=== PATIENT | male | born 1975 | race Caucasian/White ===

== ENCOUNTER 2021-09-24 15:50 | Inpatient (IN) | payer MEDICARE, OTHER ==
[~2021-09-24] VITALS: Ht 175.3 cm; Wt 78.0 kg
[2021-09-24 16:01] VITALS: BP 115/65
[2021-09-24] MEDS ORDERED: IPRATROPIUM BROMIDE 0.5 MG/2.5 ML NEB SOLUTION NEB PRN (17:15)
[2021-09-24] MEDS ORDERED: ALBUTEROL SULFATE 2.5 MG/0.5 ML NEB SOLUTION NEB PRN (17:15)
[2021-09-24] MEDS ORDERED: HYPROMELLOSE 0.5% 15 ML OPHTHALMIC SOLUTION OU PRN (17:15)
[2021-09-24] MEDS: ENOXAPARIN SODIUM 60 MG/0.6 ML PF SYRINGE SQ SCH (20:36)
[2021-09-24] MEDS: MELATONIN 3 MG TABLET PO PRN (20:36)
[2021-09-24] MEDS: PROPRANOLOL HCL 20 MG TABLET PO SCH (20:36)
[2021-09-24] MEDS: TERAZOSIN HCL 2 MG CAPSULE PO SCH (20:36)
[2021-09-24] MEDS: QUEtiapine FUMARATE 25 MG TABLET PO SCH (20:36)
[2021-09-24] MEDS: GABAPENTIN 300 MG CAPSULE PO SCH (20:37)
[2021-09-24] MEDS: DOCUSATE SODIUM 100 MG CAPSULE PO SCH (20:37)
[2021-09-24] MEDS: ETHYL ALCOHOL 62% ANTISEPTIC NASAL SANITIZER 0.6 ML AMPUL NASAL SCH (20:37)
[2021-09-24] MEDS: -LIDODERM PATCH NOTE- MISC SCH (20:37)
[2021-09-24] MEDS: SENNA 187 MG TABLET PO SCH (20:37)
[2021-09-24 20:46] VITALS: BP 120/62
[2021-09-24] MEDS ORDERED: TERAZOSIN HCL 2 MG CAPSULE PO SCH (21:00)
[2021-09-24] MEDS ORDERED: PROPRANOLOL HCL 20 MG TABLET PO SCH (21:00)
[2021-09-25 02:30] VITALS: BP 110/67
[2021-09-25] MEDS: FAMOTIDINE 20 MG TABLET PO SCH (06:05)
[2021-09-25 08:00] VITALS: BP 101/61
[2021-09-25] MEDS: ENOXAPARIN SODIUM 60 MG/0.6 ML PF SYRINGE SQ SCH ×2 (08:32→20:14)
[2021-09-25] MEDS: ETHYL ALCOHOL 62% ANTISEPTIC NASAL SANITIZER 0.6 ML AMPUL NASAL SCH ×2 (08:32→20:14)
[2021-09-25] MEDS: DOCUSATE SODIUM 100 MG CAPSULE PO SCH ×2 (08:33→20:14)
[2021-09-25] MEDS: LIDOCAINE 5% TRANSDERMAL PATCH TD SCH (08:33)
[2021-09-25] MEDS: GABAPENTIN 300 MG CAPSULE PO SCH ×3 (08:33→20:14)
[2021-09-25 08:40] VITALS: BP 97/65
[2021-09-25] MEDS: PROPRANOLOL HCL 20 MG TABLET PO SCH ×3 (08:40→20:15)
[2021-09-25] MEDS: ACETAMINOPHEN 325 MG TABLET PO PRN (09:08)
[2021-09-25 09:15] LABS: BASOPHILS % (AUTO) 1.2 % (0.0-2.0); EOSINOPHILS % (AUTO) 5.7 % (1.0-6.0); HEMOGLOBIN 11.7 g/dL (13.5-17.5); LYMPHOCYTES # (AUTO) 1.1 K/uL (1.0-4.8); LYMPHOCYTES % (AUTO) 23.2 % (22.0-44.0); MEAN CORPUSCULAR HEMOGLOBIN 26.3 pg (26.0-34.0); MEAN CORPUSCULAR HGB CONC 32.5 G/dL (31.0-37.0); MEAN CORPUSCULAR VOLUME 81 fL (80-100); MONOCYTES # (AUTO) 0.4 K/uL (0.1-1.0); MONOCYTES % (AUTO) 9.2 % (2.0-9.0); NEUTROPHILS # (AUTO) 2.8 K/uL (1.8-7.7); NEUTROPHILS % (AUTO) 60.7 % (40.0-70.0); PLATELET COUNT (AUTO) 506 K/uL (150-450); RED BLOOD CELL COUNT(AUTO) 4.44 MIL/uL (4.50-5.90); RED CELL DISTRIBUTION WIDTH 19.5 % (11.5-14.5)
[2021-09-25 09:31] LABS: ALANINE AMINOTRANSFERASE 52 U/L (12-78); ALBUMIN 2.9 g/dL (3.4-5.0); ALKALINE PHOSPHATASE 160 U/L (46-116); ANION GAP 7 mmol/L (8-16); ASPARTATE AMINOTRANSFERASE 21 U/L (15-37); BILIRUBIN,TOTAL 0.1 mg/dL (0.1-1.0); CALCIUM, TOTAL 9.4 mg/dL (8.8-10.5); CARBON DIOXIDE 31 mmol/L (22-29); CHLORIDE 104 mmol/L (98-107); CREATININE 0.79 mg/dL (0.60-1.30); GLOMERULAR FILTR. RATE CALC > 60 mL/min (>60); GLUCOSE,RANDOM 97 mg/dL (70-110); POTASSIUM 3.7 mmol/L (3.5-5.1); SODIUM SERUM 142 mmol/L (136-145); TOTAL PROTEIN, SERUM 7.7 g/dL (6.4-8.2); UREA NITROGEN, BLOOD 12 mg/dL (7-18)
[2021-09-25 12:21] VITALS: BP 114/79
[2021-09-25 16:14] VITALS: BP 114/77
[2021-09-25] MEDS: QUEtiapine FUMARATE 25 MG TABLET PO SCH (20:14)
[2021-09-25] MEDS: MELATONIN 3 MG TABLET PO PRN (20:14)
[2021-09-25] MEDS: SENNA 187 MG TABLET PO SCH (20:14)
[2021-09-25] MEDS: TERAZOSIN HCL 2 MG CAPSULE PO SCH (20:14)
[2021-09-25] MEDS: -LIDODERM PATCH NOTE- MISC SCH ×2 (20:15)
[2021-09-25 20:25] VITALS: BP 108/63
[2021-09-26] VITALS (7 sets, daily range): BP systolic 95–127; BP diastolic 51–76
[2021-09-26] MEDS: FAMOTIDINE 20 MG TABLET PO SCH (06:32)
[2021-09-26] MEDS: ETHYL ALCOHOL 62% ANTISEPTIC NASAL SANITIZER 0.6 ML AMPUL NASAL SCH ×2 (08:27→21:06)
[2021-09-26] MEDS: DOCUSATE SODIUM 100 MG CAPSULE PO SCH ×2 (08:27→21:06)
[2021-09-26] MEDS: ENOXAPARIN SODIUM 60 MG/0.6 ML PF SYRINGE SQ SCH ×2 (08:28→21:12)
[2021-09-26] MEDS: GABAPENTIN 300 MG CAPSULE PO SCH ×3 (08:28→21:07)
[2021-09-26] MEDS: LIDOCAINE 5% TRANSDERMAL PATCH TD SCH ×2 (08:29→08:30)
[2021-09-26] MEDS: ACETAMINOPHEN 325 MG TABLET PO PRN (08:30)
[2021-09-26] MEDS: PROPRANOLOL HCL 20 MG TABLET PO SCH (08:37)
[2021-09-26] MEDS: PROPRANOLOL HCL 10 MG TABLET PO SCH ×2 (12:31→21:06)
[2021-09-26] MEDS: -LIDODERM PATCH NOTE- MISC SCH ×2 (21:06)
[2021-09-26] MEDS: QUEtiapine FUMARATE 25 MG TABLET PO SCH (21:06)
[2021-09-26] MEDS: TERAZOSIN HCL 2 MG CAPSULE PO SCH (21:07)
[2021-09-26] MEDS: SENNA 187 MG TABLET PO SCH (21:07)
[2021-09-27 05:45] VITALS: BP 99/63
[2021-09-27] MEDS: FAMOTIDINE 20 MG TABLET PO SCH (06:05)
[2021-09-27] MEDS: PROPRANOLOL HCL 10 MG TABLET PO SCH ×3 (09:00→22:16)
[2021-09-27 09:33] VITALS: BP 99/69
[2021-09-27] MEDS: GABAPENTIN 300 MG CAPSULE PO SCH ×3 (09:48→22:16)
[2021-09-27] MEDS: ETHYL ALCOHOL 62% ANTISEPTIC NASAL SANITIZER 0.6 ML AMPUL NASAL SCH ×2 (09:48→22:15)
[2021-09-27] MEDS: DOCUSATE SODIUM 100 MG CAPSULE PO SCH ×2 (09:48→22:15)
[2021-09-27] MEDS: ENOXAPARIN SODIUM 60 MG/0.6 ML PF SYRINGE SQ SCH ×2 (09:49→22:18)
[2021-09-27] MEDS: LIDOCAINE 5% TRANSDERMAL PATCH TD SCH ×2 (09:49)
[2021-09-27] MEDS: ACETAMINOPHEN 325 MG TABLET PO PRN (10:18)
[2021-09-27 12:31] VITALS: BP 112/70
[2021-09-27 16:30] VITALS: BP 126/64
[2021-09-27 20:30] VITALS: BP 114/69
[2021-09-27] MEDS: -LIDODERM PATCH NOTE- MISC SCH ×2 (22:15)
[2021-09-27] MEDS: SENNA 187 MG TABLET PO SCH (22:15)
[2021-09-27] MEDS: NYSTATIN 30 GM CREAM TP SCH (22:15)
[2021-09-27] MEDS: QUEtiapine FUMARATE 25 MG TABLET PO SCH (22:16)
[2021-09-27] MEDS: TERAZOSIN HCL 2 MG CAPSULE PO SCH (22:16)
[2021-09-28 06:00] VITALS: BP 115/66
[2021-09-28] MEDS: FAMOTIDINE 20 MG TABLET PO SCH (06:12)
[2021-09-28 08:01] VITALS: BP 112/68
[2021-09-28] MEDS: ETHYL ALCOHOL 62% ANTISEPTIC NASAL SANITIZER 0.6 ML AMPUL NASAL SCH ×2 (08:25→21:49)
[2021-09-28] MEDS: DOCUSATE SODIUM 100 MG CAPSULE PO SCH ×2 (08:27→21:49)
[2021-09-28] MEDS: PROPRANOLOL HCL 10 MG TABLET PO SCH ×3 (08:28→21:50)
[2021-09-28] MEDS: GABAPENTIN 300 MG CAPSULE PO SCH ×3 (08:30→21:50)
[2021-09-28] MEDS: ENOXAPARIN SODIUM 60 MG/0.6 ML PF SYRINGE SQ SCH ×2 (08:32→21:51)
[2021-09-28] MEDS: LIDOCAINE 5% TRANSDERMAL PATCH TD SCH ×2 (08:33→08:38)
[2021-09-28] MEDS: NYSTATIN 30 GM CREAM TP SCH ×2 (08:42→21:51)
[2021-09-28 16:30] VITALS: BP 122/69
[2021-09-28 21:47] VITALS: BP 113/65
[2021-09-28] MEDS: -LIDODERM PATCH NOTE- MISC SCH ×2 (21:49)
[2021-09-28] MEDS: QUEtiapine FUMARATE 25 MG TABLET PO SCH (21:50)
[2021-09-28] MEDS: SENNA 187 MG TABLET PO SCH (21:50)
[2021-09-28] MEDS: TERAZOSIN HCL 2 MG CAPSULE PO SCH (21:50)
[2021-09-29 05:37] VITALS: BP 96/62
[2021-09-29] MEDS: FAMOTIDINE 20 MG TABLET PO SCH (06:41)
[2021-09-29] MEDS: ETHYL ALCOHOL 62% ANTISEPTIC NASAL SANITIZER 0.6 ML AMPUL NASAL SCH ×2 (07:43→20:16)
[2021-09-29] MEDS: ENOXAPARIN SODIUM 60 MG/0.6 ML PF SYRINGE SQ SCH ×2 (07:43→20:16)
[2021-09-29] MEDS: LIDOCAINE 5% TRANSDERMAL PATCH TD SCH ×2 (07:44)
[2021-09-29] MEDS: PROPRANOLOL HCL 10 MG TABLET PO SCH ×3 (07:45→20:16)
[2021-09-29] MEDS: GABAPENTIN 300 MG CAPSULE PO SCH ×3 (07:45→20:17)
[2021-09-29] MEDS: DOCUSATE SODIUM 100 MG CAPSULE PO SCH ×2 (07:45→20:16)
[2021-09-29] MEDS: NYSTATIN 30 GM CREAM TP SCH ×2 (07:46→20:56)
[2021-09-29 11:16] VITALS: BP 100/60
[2021-09-29 12:16] VITALS: BP 116/78
[2021-09-29] MEDS: ACETAMINOPHEN 325 MG TABLET PO PRN (14:13)
[2021-09-29 16:53] VITALS: BP 115/62
[2021-09-29 20:10] VITALS: BP 104/68
[2021-09-29] MEDS: QUEtiapine FUMARATE 25 MG TABLET PO SCH (20:16)
[2021-09-29] MEDS: SENNA 187 MG TABLET PO SCH (20:16)
[2021-09-29] MEDS: TERAZOSIN HCL 2 MG CAPSULE PO SCH (20:16)
[2021-09-29] MEDS: -LIDODERM PATCH NOTE- MISC SCH ×2 (20:55)
[2021-09-30 05:07] VITALS: BP 107/66
[2021-09-30] MEDS: FAMOTIDINE 20 MG TABLET PO SCH (06:32)
[2021-09-30] MEDS: LIDOCAINE 5% TRANSDERMAL PATCH TD SCH ×2 (08:54)
[2021-09-30] MEDS: GABAPENTIN 300 MG CAPSULE PO SCH ×3 (08:55→20:06)
[2021-09-30] MEDS: DOCUSATE SODIUM 100 MG CAPSULE PO SCH ×2 (08:55→20:06)
[2021-09-30] MEDS: ETHYL ALCOHOL 62% ANTISEPTIC NASAL SANITIZER 0.6 ML AMPUL NASAL SCH ×2 (08:55→20:06)
[2021-09-30] MEDS: ENOXAPARIN SODIUM 60 MG/0.6 ML PF SYRINGE SQ SCH ×2 (09:11→20:06)
[2021-09-30] MEDS: NYSTATIN 30 GM CREAM TP SCH ×2 (09:11→20:07)
[2021-09-30 09:12] VITALS: BP 110/64
[2021-09-30] MEDS: PROPRANOLOL HCL 10 MG TABLET PO SCH ×3 (09:14→20:06)
[2021-09-30 12:13] VITALS: BP 126/78
[2021-09-30 16:04] VITALS: BP 116/70
[2021-09-30 19:55] VITALS: BP 112/65
[2021-09-30] MEDS: QUEtiapine FUMARATE 25 MG TABLET PO SCH (20:06)
[2021-09-30] MEDS: TERAZOSIN HCL 2 MG CAPSULE PO SCH (20:06)
[2021-09-30] MEDS: -LIDODERM PATCH NOTE- MISC SCH ×2 (20:07)
[2021-09-30] MEDS: SENNA 187 MG TABLET PO SCH (20:20)
[2021-10-01 05:34] VITALS: BP 122/60
[2021-10-01] MEDS: FAMOTIDINE 20 MG TABLET PO SCH (05:36)
[2021-10-01] MEDS: DOCUSATE SODIUM 100 MG CAPSULE PO SCH ×2 (09:00→22:06)
[2021-10-01] MEDS: ETHYL ALCOHOL 62% ANTISEPTIC NASAL SANITIZER 0.6 ML AMPUL NASAL SCH ×2 (09:09→22:07)
[2021-10-01] MEDS: LIDOCAINE 5% TRANSDERMAL PATCH TD SCH ×2 (09:10)
[2021-10-01] MEDS: GABAPENTIN 300 MG CAPSULE PO SCH ×3 (09:11→22:07)
[2021-10-01] MEDS: ACETAMINOPHEN 325 MG TABLET PO PRN ×2 (09:11→14:31)
[2021-10-01] MEDS: ENOXAPARIN SODIUM 60 MG/0.6 ML PF SYRINGE SQ SCH ×2 (09:11→22:06)
[2021-10-01] MEDS: PROPRANOLOL HCL 10 MG TABLET PO SCH ×2 (09:11→22:05)
[2021-10-01] MEDS: NYSTATIN 30 GM CREAM TP SCH ×2 (09:12→22:06)
[2021-10-01 09:15] VITALS: BP 113/66
[2021-10-01 16:32] VITALS: BP 124/64
[2021-10-01 21:00] VITALS: BP 112/66
[2021-10-01] MEDS: -LIDODERM PATCH NOTE- MISC SCH ×2 (22:01)
[2021-10-01] MEDS: QUEtiapine FUMARATE 25 MG TABLET PO SCH (22:05)
[2021-10-01] MEDS: SENNA 187 MG TABLET PO SCH (22:07)
[2021-10-01] MEDS: TERAZOSIN HCL 2 MG CAPSULE PO SCH (22:07)
[2021-10-02 06:00] VITALS: BP 103/63
[2021-10-02] MEDS: FAMOTIDINE 20 MG TABLET PO SCH (06:00)
[2021-10-02] MEDS: GABAPENTIN 300 MG CAPSULE PO SCH ×3 (08:29→21:02)
[2021-10-02] MEDS: PROPRANOLOL HCL 10 MG TABLET PO SCH ×2 (08:29→21:01)
[2021-10-02] MEDS: ENOXAPARIN SODIUM 60 MG/0.6 ML PF SYRINGE SQ SCH ×2 (08:30→21:03)
[2021-10-02] MEDS: DOCUSATE SODIUM 100 MG CAPSULE PO SCH ×2 (08:30→21:01)
[2021-10-02] MEDS: ETHYL ALCOHOL 62% ANTISEPTIC NASAL SANITIZER 0.6 ML AMPUL NASAL SCH ×2 (08:33→21:01)
[2021-10-02] MEDS: NYSTATIN 30 GM CREAM TP SCH ×2 (08:33→21:03)
[2021-10-02] MEDS: LIDOCAINE 5% TRANSDERMAL PATCH TD SCH ×2 (08:33)
[2021-10-02] MEDS: ACETAMINOPHEN 325 MG TABLET PO PRN (09:18)
[2021-10-02 09:20] VITALS: BP 107/62
[2021-10-02 16:05] VITALS: BP 120/78
[2021-10-02 20:57] VITALS: BP 138/68
[2021-10-02] MEDS: -LIDODERM PATCH NOTE- MISC SCH ×2 (21:01)
[2021-10-02] MEDS: SENNA 187 MG TABLET PO SCH (21:02)
[2021-10-02] MEDS: TERAZOSIN HCL 2 MG CAPSULE PO SCH (21:02)
[2021-10-02] MEDS: QUEtiapine FUMARATE 25 MG TABLET PO SCH (21:02)
[2021-10-03 03:31] VITALS: BP 99/64
[2021-10-03] MEDS: FAMOTIDINE 20 MG TABLET PO SCH (06:01)
[2021-10-03] MEDS: ENOXAPARIN SODIUM 60 MG/0.6 ML PF SYRINGE SQ SCH ×2 (07:46→21:39)
[2021-10-03] MEDS: ETHYL ALCOHOL 62% ANTISEPTIC NASAL SANITIZER 0.6 ML AMPUL NASAL SCH ×2 (07:46→21:38)
[2021-10-03] MEDS: PROPRANOLOL HCL 10 MG TABLET PO SCH ×2 (07:47→21:40)
[2021-10-03] MEDS: DOCUSATE SODIUM 100 MG CAPSULE PO SCH ×2 (07:47→21:39)
[2021-10-03] MEDS: GABAPENTIN 300 MG CAPSULE PO SCH ×3 (07:47→21:39)
[2021-10-03] MEDS: LIDOCAINE 5% TRANSDERMAL PATCH TD SCH ×2 (07:48)
[2021-10-03] MEDS: NYSTATIN 30 GM CREAM TP SCH ×2 (07:49→21:40)
[2021-10-03 10:16] VITALS: BP 107/74
[2021-10-03] MEDS: ACETAMINOPHEN 325 MG TABLET PO PRN (11:42)
[2021-10-03 16:30] VITALS: BP 118/74
[2021-10-03 21:05] VITALS: BP 121/64
[2021-10-03] MEDS: -LIDODERM PATCH NOTE- MISC SCH ×2 (21:37)
[2021-10-03] MEDS: SENNA 187 MG TABLET PO SCH (21:39)
[2021-10-03] MEDS: TERAZOSIN HCL 2 MG CAPSULE PO SCH (21:39)
[2021-10-04] VITALS: BP 105/62
[2021-10-04] MEDS: FAMOTIDINE 20 MG TABLET PO SCH (06:13)
[2021-10-04] MEDS ORDERED: DOCU-385 PO (08:00)
[2021-10-04] MEDS ORDERED: NYST30CR9 TP (08:00)
[2021-10-04] MEDS ORDERED: LIDO700A15 TP (08:00)
[2021-10-04] MEDS ORDERED: GABA-1181 PO (08:00)
[2021-10-04] MEDS ORDERED: SENN8.8S18 PO (08:00)
[2021-10-04] MEDS ORDERED: FAMO20 PO (08:00)
[2021-10-04] MEDS ORDERED: HYPR15DR23 OU (08:00)
[2021-10-04] MEDS ORDERED: PROP10TA73 PO (08:00)
[2021-10-04] MEDS ORDERED: ACET-784 PO (08:00)
[2021-10-04] MEDS: ACETAMINOPHEN 325 MG TABLET PO PRN (08:43)
[2021-10-04] MEDS: LIDOCAINE 5% TRANSDERMAL PATCH TD SCH ×2 (08:43→08:44)
[2021-10-04] MEDS: ENOXAPARIN SODIUM 60 MG/0.6 ML PF SYRINGE SQ SCH ×2 (08:44→20:10)
[2021-10-04] MEDS: DOCUSATE SODIUM 100 MG CAPSULE PO SCH ×2 (08:44→20:09)
[2021-10-04] MEDS: GABAPENTIN 300 MG CAPSULE PO SCH ×3 (08:44→20:09)
[2021-10-04 08:45] VITALS: BP 104/70
[2021-10-04] MEDS: ETHYL ALCOHOL 62% ANTISEPTIC NASAL SANITIZER 0.6 ML AMPUL NASAL SCH ×2 (08:45→20:11)
[2021-10-04] MEDS: NYSTATIN 30 GM CREAM TP SCH ×2 (08:45→20:19)
[2021-10-04 16:52] VITALS: BP 116/57
[2021-10-04 19:53] VITALS: BP 105/58
[2021-10-04] MEDS: PROPRANOLOL HCL 10 MG TABLET PO SCH (20:10)
[2021-10-04] MEDS: TERAZOSIN HCL 2 MG CAPSULE PO SCH (20:10)
[2021-10-04] MEDS: -LIDODERM PATCH NOTE- MISC SCH ×2 (20:11)
[2021-10-04] MEDS: SENNA 187 MG TABLET PO SCH (20:12)
[2021-10-04] MEDS: MELATONIN 3 MG TABLET PO PRN (20:20)
[2021-10-05 01:30] VITALS: BP 100/61
[2021-10-05] MEDS: FAMOTIDINE 20 MG TABLET PO SCH (06:07)
[2021-10-05] MEDS: LIDOCAINE 5% TRANSDERMAL PATCH TD SCH ×2 (08:20→08:21)
[2021-10-05] MEDS: ETHYL ALCOHOL 62% ANTISEPTIC NASAL SANITIZER 0.6 ML AMPUL NASAL SCH ×2 (08:22→20:17)
[2021-10-05] MEDS: GABAPENTIN 300 MG CAPSULE PO SCH ×3 (08:22→20:19)
[2021-10-05] MEDS: ENOXAPARIN SODIUM 60 MG/0.6 ML PF SYRINGE SQ SCH ×2 (08:22→20:18)
[2021-10-05] MEDS: DOCUSATE SODIUM 100 MG CAPSULE PO SCH ×2 (08:22→20:19)
[2021-10-05] MEDS: NYSTATIN 30 GM CREAM TP SCH ×2 (08:23→20:20)
[2021-10-05 09:21] VITALS: BP 121/68
[2021-10-05 15:20] VITALS: BP 128/70
[2021-10-05] MEDS: SENNA 187 MG TABLET PO SCH (20:17)
[2021-10-05] MEDS: TERAZOSIN HCL 2 MG CAPSULE PO SCH (20:19)
[2021-10-05] MEDS: PROPRANOLOL HCL 10 MG TABLET PO SCH (20:19)
[2021-10-05] MEDS: -LIDODERM PATCH NOTE- MISC SCH ×2 (20:34)
[2021-10-05] MEDS: MELATONIN 3 MG TABLET PO PRN (20:37)
[2021-10-06 05:26] VITALS: BP 105/63
[2021-10-06] MEDS: FAMOTIDINE 20 MG TABLET PO SCH (06:22)
[2021-10-06 08:10] VITALS: BP 103/57
[2021-10-06] MEDS: DOCUSATE SODIUM 100 MG CAPSULE PO SCH ×2 (09:00→22:01)
[2021-10-06] MEDS: LIDOCAINE 5% TRANSDERMAL PATCH TD SCH ×2 (09:12→09:13)
[2021-10-06] MEDS: GABAPENTIN 300 MG CAPSULE PO SCH ×3 (09:13→22:01)
[2021-10-06] MEDS: NYSTATIN 30 GM CREAM TP SCH ×2 (09:14→22:02)
[2021-10-06] MEDS: ETHYL ALCOHOL 62% ANTISEPTIC NASAL SANITIZER 0.6 ML AMPUL NASAL SCH ×2 (09:14→21:56)
[2021-10-06] MEDS: ENOXAPARIN SODIUM 60 MG/0.6 ML PF SYRINGE SQ SCH ×2 (09:14→22:01)
[2021-10-06] MEDS: ACETAMINOPHEN 325 MG TABLET PO PRN (09:59)
[2021-10-06 16:10] VITALS: BP 116/65
[2021-10-06] MEDS: PROPRANOLOL HCL 10 MG TABLET PO SCH (22:01)
[2021-10-06] MEDS: TERAZOSIN HCL 2 MG CAPSULE PO SCH (22:01)
[2021-10-06] MEDS: SENNA 187 MG TABLET PO SCH (22:02)
[2021-10-06] MEDS: -LIDODERM PATCH NOTE- MISC SCH ×2 (22:03→22:14)
[2021-10-06] MEDS: MELATONIN 3 MG TABLET PO PRN (22:27)
[2021-10-07] VITALS: BP 107/60
[2021-10-07] MEDS: FAMOTIDINE 20 MG TABLET PO SCH (06:30)
[2021-10-07] MEDS: DOCUSATE SODIUM 100 MG CAPSULE PO SCH ×2 (08:26→21:00)
[2021-10-07] MEDS: ETHYL ALCOHOL 62% ANTISEPTIC NASAL SANITIZER 0.6 ML AMPUL NASAL SCH ×2 (08:26→22:01)
[2021-10-07] MEDS: GABAPENTIN 300 MG CAPSULE PO SCH ×3 (08:26→21:27)
[2021-10-07] MEDS: LIDOCAINE 5% TRANSDERMAL PATCH TD SCH ×2 (08:27→08:28)
[2021-10-07] MEDS: ENOXAPARIN SODIUM 60 MG/0.6 ML PF SYRINGE SQ SCH ×2 (08:27→21:29)
[2021-10-07] MEDS: NYSTATIN 30 GM CREAM TP SCH ×2 (08:28→21:30)
[2021-10-07 09:00] VITALS: BP 108/65
[2021-10-07 16:14] VITALS: BP 121/73
[2021-10-07] MEDS: SENNA 187 MG TABLET PO SCH (21:00)
[2021-10-07] MEDS: -LIDODERM PATCH NOTE- MISC SCH ×2 (21:23)
[2021-10-07] MEDS: TERAZOSIN HCL 2 MG CAPSULE PO SCH (21:27)
[2021-10-08] VITALS: BP 111/68
[2021-10-08] MEDS: FAMOTIDINE 20 MG TABLET PO SCH (06:13)
[2021-10-08] MEDS: ENOXAPARIN SODIUM 60 MG/0.6 ML PF SYRINGE SQ SCH (09:07)
[2021-10-08] MEDS: LIDOCAINE 5% TRANSDERMAL PATCH TD SCH ×2 (09:08→09:09)
[2021-10-08] MEDS: DOCUSATE SODIUM 100 MG CAPSULE PO SCH (09:08)
[2021-10-08] MEDS: GABAPENTIN 300 MG CAPSULE PO SCH (09:08)
[2021-10-08] MEDS: ETHYL ALCOHOL 62% ANTISEPTIC NASAL SANITIZER 0.6 ML AMPUL NASAL SCH (09:08)
[2021-10-08] MEDS: NYSTATIN 30 GM CREAM TP SCH (09:10)
[2021-10-08] MEDS ORDERED: LIDO700A30 TD (09:16)
[2021-10-08] MEDS ORDERED: GABA-1181 PO (09:16)
[2021-10-08] MEDS ORDERED: DOCU-385 PO (09:16)
[2021-10-08] MEDS ORDERED: ACET325T51 PO (09:16)
[2021-10-08] MEDS ORDERED: TERA2CAP82 PO (09:16)
[2021-10-08] MEDS ORDERED: SENN-187 PO (09:16)
[2021-10-08] MEDS ORDERED: FAMO20 PO (09:16)
[2021-10-08 09:18] VITALS: BP 119/71
== END 2021-10-08 13:00 | disposition home health service (06) | DRG 86 ==
LOC: 2WR 15:50
PROVIDERS: ADMIT Physical Medicine & Rehabilitation; ATTEND Physical Medicine & Rehabilitation
DX: S06.9X0A Unspecified intracranial injury without loss of consciousness, initial encounter (principal); S82.292A Other fracture of shaft of left tibia, initial encounter for closed fracture; S06.5X0A Traumatic subdural hemorrhage without loss of consciousness, initial encounter; D64.9 Anemia, unspecified; R32 Unspecified urinary incontinence; R13.10 Dysphagia, unspecified; B00.9 Herpesviral infection, unspecified; F19.10 Other psychoactive substance abuse, uncomplicated; S82.492A Other fracture of shaft of left fibula, initial encounter for closed fracture; V09.9XXA Pedestrian injured in unspecified transport accident, initial encounter; Y93.89 Activity, other specified; Y92.89 Other specified places as the place of occurrence of the external cause; Y99.8 Other external cause status
CPT/HCPCS: 80053; 85025; 87081; 92507; 92523; 93970; 97110; 97112; 97116; 97163; 97166; 97530; 97535; 99366; J1650